=== PATIENT | female | born 1965 | race Caucasian/White ===

== ENCOUNTER 2017-05-13 11:17 | Emergency (ER) | payer BC ==
[~2017-05-13] VITALS: Ht 167.6 cm; Wt 66.2 kg
[~2017-05-13 11:17] MED LIST: AUGMENTIN1 TA2 PO; BIAXIN500 MG PO; CYCLOBENZAPRINE10 M1 OR; IBU600 MG PO; KEFLEX 500MG.500 MG PO; KEFLEX500 M1 PO; NOMEDS *; PAROXETINE HCL20 MG PO; PREDNISONE50 MG PO; PROAIR HFA0.09 MG/AC IH; TESSALON PERLE100 MG PO; VICODIN 5/500 T1 TAB PO; VICODIN 5/6 EACH/PAK OR; ZOFRAN4 MG PO; ZYRTEC10 M1 PO
[2017-05-13] MEDS ORDERED: DAILY MULTIPLE1 TA8 PO (11:28)
[2017-05-13] MEDS ORDERED: WELLBUTRIN 100100 MG PO (11:28)
[2017-05-13 11:31] LABS: URINE BILIRUBIN - DIPSTICK NEGATIVE (NEG)
[2017-05-13 11:32] LABS: URINE BLOOD TRACE (NEG)
--- NOTE | 2017-05-13 11:48 | Urgent Treatment Center Report ---
History of Present Issue Date/Time Seen by Provider 05/13/17 1148 Visit Reason Pt arrived:Walked Presenting Problem:PT STATES RIGHT KIDNEY PAIN AND ODOR TO URINE X4 DAYS Location if Accident: Onset of symptoms date/time:/ or onset unknown for:MEDICAL HX UNKNOWN Have you (or family members/close friends) recently traveled outside the [place]? N If Yes, where/when: Have you had exposure to infectious disease within the past month? TB? Other? Specify: c/o possible UTI. Urine odor and cloudiness x 4 days. While at work this morning , right low back pain started. Described as moderate, constant, ache. No hx of kidney stones but reports this pain is "not like anything I have heard say that feels like". Hasn't taken or tried anything for symptoms. Hx of left nephrectomy for donation. Denies fever, aches, chills, nausea, vomiting. Mild dysuria at end of urination. No frequecy. Denies discharge, abdominal pain. Source patient Exam Limitations no limitations ALLERGIES Coded Allergies: nitrofurantoin (RASH, HIVES, SOA 09/03/15) Home Medications Reported Medications MULTIVITAMIN (Daily Multiple Vitamin) 1 TAB PO DAILY Bupropion Hcl Sr (Wellbutrin 100MG Tab,Sr) 100 MG PO DAILY History Medical History General CAD? No Angina: No MS: No Hypertension? No Hyperlipidemia? No CHF? No DVT? No PE? No COPD? No Asthma? No Anemia? No GERD? No Gastric ulcers? No GI Bleed? No Hernia? No Thyroid Problems? No Hypothyroidism? No CVA? No Seizures? No Diabetes? No Renal Insuffiency? No UTI? Yes Stones? No BPH? No GB Disease: No Nephritic Syndrome? No Asplenia? No Hepatitis? No Sickle Cell Disease? No Arthritis? No Migraines? No Cataracts? No Glaucoma? No MRSA? No HIV? No TB? No Anxiety? No Depression? No Cancer? 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 denies: abnormal vaginal bleeding, hesitancy, hematuria, pelvic pain. Musculoskeletal denies other (aches) Skin denies change in color Physical Exam Vital Signs Vital Signs Date Time Temp Pulse Resp B/P Pulse O2 O2 Flow FiO2 Ox Delivery Rate 05/13 1127 97.9 96 18 116/77 99 General Appearance normal appearance, mild distress (holding right lower lumbar) Respiratory Status No: respiratory distress. Cardiovascular no peripheral edema Gastrointestinal normal bowel sounds, non tender, soft, no suprapubic tenderness , no bladder distention Back normal inspection, no CVA tenderness, no vertebral tenderness, bowel/ bladder continent, gait normal, no tenderness w/ palpation, reporting pain right lumbar region Extremities normal range of motion (BLE) Strength 5 Lower Ext (L), 5 Lower Ext (R) Neurologic alert, no motor/sensory deficits, oriented x 3 Mental status normal mood/affect Skin normal color, warm/dry Medical Decision Making LABS/Meds/Orders Pt receiving controlled substance in ED? No Results/Orders Laboratory Tests 05/13/17 1126: Urine Color YELLOW, Urine Appearance Sl Cloudy, Urine pH 5.5, Ur Specific [place] 1.025, Urine Protein NEGATIVE, Urine Ketones NEGATIVE, Urine Blood TRACE H, Urine Nitrate POSITIVE H, Urine Bilirubin NEGATIVE, Urine Urobilinogen 0.2, Ur Leukocyte Esterase TRACE H, Urine Glucose NEGATIVE Current Medication Orders Sig/Renetta Start time Last Medication Dose Route Stop Time Status Admin Trimethoprim/ 0 .STK-MED ONE 05/13 1204 DC Sulfamethoxazole PO Acetaminophen 0 .STK-MED ONE 05/13 1203 DC PO Trimethoprim/ 0 .STK-MED ONE 05/13 1203 DC Sulfamethoxazole PO Acetaminophen 1,000 MG ONCE ONE 05/13 1200 DC 05/13 PO 05/13 1201 1203 Trimethoprim/ 1 TABLET ONCE ONE 05/13 1200 DCr 05/13 Sulfamethoxazole PO 05/13 1201 1203 Orders Procedure Date/time Status CULTURE, URINE 05/13 120 Active [facility] URINE DIPSTICK 05/13 1126 Complete Departure Departure Time of Disposition 1205 Disposition DC Home or Self Care(routine) Clinical Impression Primary Impression: UTI (urinary tract infection) Qualifiers: Urinary tract infection type: site unspecified Hematuria presence: with hematuria Qualified Code: N39.0 - Urinary tract infection, site not specified Condition STABLE Referrals NO REFERRAL You primary care in [place]. Call today and schedule a follow up for Tuesday to review symptoms, ensure improvement and discuss urine culture. Return to [facility]/ ER immediately this weekend for any new or worsening symptoms as we discussed. Patient Instructions DI for Urinary Tract Infection (UTI), Phenazopyridine Additional Instructions * increase fluids, Water and NOT soda or tea * Start antibiotic this evening after you get off work since we gave you the first dose here in the clinic. Be sure to take as ordered for the FULL length of time although you should start to see improvement over the next 48 hours. * Tylenol as needed for low back pain. Should begin to improve w/ antibiotic treatment. If not, be sure to follow up immediately. * pyridium as needed. Remember this will turn your urine ORANGE, this is normal but will stain whatever it gets on * You should not need the pyridium longer than 48 hours. If so, follow up with primary care to review urine culture and ensure antibiotic is adequate * Be SURE to follow up anytime for new or worsening symptoms, if no improvement in 48 hours AND in 10-14 days to repeat UA and ensure infection resolved and blood no longer present. * Be sure to let your PCP (or whoever you follow up with) know we sent urine culture so they can request records and ensure you are on the appropriate antibiotic if you are not getting better or getting worse!!! Discharge Counseling Counseled pt/family regarding diagnosis, test results, medications/RX, home care, follow up needs Prescriptions Current Visit Scripts SULFAMETHOXAZOLE W/TRIMETHOPRI (Bactrim Ds Tab) 1 TABLET PO BID #13 TAB has first dose in clinic today Phenazopyridine HCl (Pyridium) 200 MG PO TIDP PRN dysuria #6 TAB at 1210
--- OUTSIDE RECORDS SUMMARY | 2017-05-13 12:01 | External Medical Summary Rpt ---
Demographics Preferred Language Yoruba Marital Status Unknown Latter Day Affiliation Unknown Race Unknown Ethnic Group Unknown Author Author BETH Address Unknown Phone Immunization No patient found.
--- OUTSIDE RECORDS SUMMARY | 2017-05-13 12:01 | External Medical Summary Rpt ---
Author Author , DINORA FARIAS Address Unknown Phone [email or web address] Purpose Continuity of Care Document - 12-13-2016 through 2016 Problems Code Diagnosis DOS Provider Status K21.0 GASTRO-ESOP 12-22-2016 HAGEAL REFLUX DISEASE WITH ESOPHAGITIS K29.50 UNSPECIFIED 12-22-2016 CHRONIC GASTRITIS WITHOUT BLEEDING K44.9 DIAPHRAGMAT 12-22-2016 IC HERNIA WITHOUT OBSTRUCTION OR GANGRENE K92.1 MELENA 12-22-2016 R11.2 NAUSEA WITH 12-22-2016 VOMITING, UNSPECIFIED Z72.0 TOBACCO USE 12-22-2016 K52.9 NONINFECTIV 12-13-2016 E GASTROENTER ITIS AND COLITIS, UNSPECIFIED K62.5 HEMORRHAGE 12-13-2016 OF ANUS AND RECTUM R10.30 LOWER 12-13-2016 ABDOMINAL PAIN, UNSPECIFIED 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
--- OUTSIDE RECORDS SUMMARY | 2017-05-13 12:01 | External Medical Summary Rpt ---
Demographics Preferred Language Khmer Marital Status Unknown Jewish Affiliation Unknown Race Unknown Ethnic Group Unknown Author Author BETH Address Unknown Phone Immunization No patient found.
--- OUTSIDE RECORDS SUMMARY | 2017-05-13 12:01 | External Medical Summary Rpt ---
Author Author , DINORA FARIAS Address Unknown Phone [email or web address] Purpose Continuity of Care Document - 12-13-2016 [...]
--- OUTSIDE RECORDS SUMMARY | 2017-05-13 12:01 | External Medical Summary Rpt ---
Author Author [employer] Organization [employer] Address Unknown Phone Unavailable Purpose Continuity of Care Document - through 2016
[2017-05-13] MEDS ORDERED: PYRIDIUM200 M2 PO (12:03)
[2017-05-13] MEDS ORDERED: BACTRIM DS 8001 TA1 PO (12:03)
[2017-05-13 12:09] VITALS: BP 116/77
== END 2017-05-13 12:09 | disposition home or self-care (01) ==
LOC: UTC 11:17
PROVIDERS: Nurse Practitioner Family
DX: N39.0 Urinary tract infection, site not specified (principal); Z72.0 Tobacco use

== ENCOUNTER 2017-07-22 11:38 | Emergency (ER) | payer BC ==
[~2017-07-22] VITALS: Ht 167.6 cm; Wt 66.7 kg
[~2017-07-22 11:38] MED LIST changes: +BACTRIM DS 8001 TA1 PO; +DAILY MULTIPLE1 TA8 PO; +PYRIDIUM200 M2 PO; +WELLBUTRIN 100100 MG PO
[2017-07-22] MEDS ORDERED: CALCIUM ACETAT667 MG PO (11:52)
[2017-07-22] MEDS ORDERED: PROAIR HFA0.09 MG/AC IH (11:53)
[2017-07-22] MEDS ORDERED: ANORO ELLIPTA1 POW IH (11:54)
[2017-07-22 12:04] LABS: HEMOGLOBIN 13.9 g/dL (12.2-16.2); LYMPH # 2.8 K/mm3 (0.7-4.5)
[2017-07-22 12:05] LABS: URINE BILIRUBIN - DIPSTICK NEGATIVE (NEG); URINE BLOOD NEGATIVE (NEG)
[2017-07-22 12:25] LABS: BUN 21 mg/dL (7-18); GFR (ESTIMATED) 37 ML/MIN (59-)
--- NOTE | 2017-07-22 12:39 | RADIOLOGY REPORT PS360 ---
CT HEAD W/O CONTRAST HISTORY: Dizziness, bilateral arm heaviness ARM HEAVINESS BILATERAL DIZZINESS ORDERING PHYSICIAN: Mela Baels MD PATIENT AGE: 51 years COMPARISON: 01/30/2015 TECHNIQUE: Axial images obtained without contrast. Brain and bone windows reviewed. FINDINGS: No midline shift, mass effect, intracranial hemorrhage, hydrocephalus, or extra-axial fluid collection is evident. The calvarium has an unremarkable appearance. No mastoid effusion. The visualized paranasal sinuses are unremarkable. IMPRESSION: 1. Negative CT head without contrast. No acute finding. 2. There is no evidence of intracranial hemorrhage, focal mass, or acute territorial infarction. A negative CT does not exclude an acute CVA. A follow-up head CT or MRI is recommended if neurological symptoms persist
--- NOTE | 2017-07-22 12:40 | RADIOLOGY REPORT PS360 ---
CHEST(2 VIEWS-NOT PORTABLE) HISTORY: DIZINESS, ARM HEAVINESS ORDERING PHYSICIAN: Mela Bales MD PATIENT AGE: 51 years COMPARISON: 09-16 FINDINGS: The cardiomediastinal silhouette and pulmonary vascularity are within normal limits. The lungs are clear without infiltrates, suspicious nodules, or pleural effusions. No change in the nodularity present in the left upper lobe overlying the third rib. No acute bony abnormalities. IMPRESSION: No change with no acute finding
--- NOTE | 2017-07-22 12:42 | Emergency Room Report ---
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 N Clinical Suspician of Infection? N Mental Status: 1 - Regular (Normal Baseline) Sepsis Risk:Low Sepsis Risk Have you (or family members/close friends) recently traveled outside the [place]? N If Yes, where/when: Have you had exposure to infectious disease within the past month? N TB? Other? Specify: Patient ate breakfast today, went to work, then felt lightheaded at work. Lips and gums were tingling, as were her hands. She feels better now. She has had some congestion, but no vertigo when turning head. Recently diagnosed with COPD in the last few weeks, started on inhalers, and quit smoking. She denies SOB today, denies flu sx, denies chest pain or palpitations, denies calf pain, denies syncope or near syncope; no cephalgia. Recent increase in Wellbutryn dosing. ALLERGIES Coded Allergies: No Known Allergies (07/22/17) Home Medications Reported Medications Bupropion Hcl Sr (Wellbutrin 100MG Tab,Sr) 300 MG PO DAILY Calcium Acetate 667 MG PO DAILY Albuterol Sulfate (Proair Hfa) 2 PUFF IH Q4HP PRN SOA UMECLIDINIUM BRM/VILANTEROL TR (Anoro Ellipta 62.5-25 Mcg INH) 1 POW IH DAILY History Medical History General CAD? No Angina: No MD: No Hypertension? No Hyperlipidemia? No CHF? No DVT? No PE? No COPD? Yes Asthma? No Anemia? No GERD? No Gastric ulcers? No GI Bleed? No Hernia? No Thyroid Problems? No Hypothyroidism? No CVA? No Seizures? No Diabetes? No Renal Insuffiency? No End Stage Renal Disease? No UTI? Yes Stones? No BPH? No GB Disease: No Nephritic Syndrome? No Asplenia? No Hepatitis? No Sickle Cell Disease? No Arthritis? No Migraines? No Cataracts? No Glaucoma? No MRSA? No HIV? No TB? No Anxiety? No Depression? No Cancer? 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 Respiratory see HPI Genitourinary denies: no symptoms reported (has hx UTI). Psychiatric/Neurological see HPI Physical Exam Vital Signs Vital Signs Date Time Temp Pulse Resp B/P Pulse O2 O2 Flow FiO2 Ox Delivery Rate 07/22 1236 94 127/97 07/22 1236 84 106/68 07/22 1220 76 124/82 07/22 1140 98.2 73 20 124/82 100 General Appearance normal appearance, WD/WN, no apparent distress Eye Exam - bilateral eye normal exam, bilateral eye PERRL, bilateral eye EOMI Ear, Nose, Throat hearing grossly normal, normal ENT inspection, normal pharynx (mild cloudiness, left TM), abnormal TM (L) Neck normal inspection, non-tender, supple, full range of motion Respiratory Status Yes: trachea midline, chest symmetrical, non tender chest. No: respiratory distress, tender on palpation, use of accessory muscles, pain on inspiration, pain on expiration, productive cough, non productive cough. Lung Sounds bilateral: normal breath sounds, lungs clear. 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 Glascow Coma Scale Glascow Coma Scale Response Value EYE response: 4 Spontaneously 4 MOTOR response: 6 OBEYS 6 VERBAL response: 5 Oriented & Converses 5 Total 15 Skin intact, normal color Medical Decision Making LABS/Meds/Orders Pt receiving controlled substance in ED? No Results/Orders Laboratory Tests 07/22/17 1155: Urine Color YELLOW, Urine Appearance CLEAR, Urine pH 6.5, Ur Specific [place] <= 1.005, Urine Protein NEGATIVE, Urine Ketones NEGATIVE, Urine Blood NEGATIVE, Urine Nitrate NEGATIVE, Urine Bilirubin NEGATIVE, Urine Urobilinogen 0.2, Ur Leukocyte Esterase NEGATIVE, Urine WBC OCC, Ur Squamous Epith Cells 5-10, Urine Bacteria 2+, Urine Glucose NEGATIVE 07/22/17 1145: Sodium 137, Potassium 3.8, Chloride 102, Carbon Dioxide 27, BUN 21 H, Creatinine 1.5 H, Estimated Creat Clear 47 L, Estimated GFR (MDRD) 37 L, Glucose 86, Calcium 9.3, Total Bilirubin 0.2, AST 16, ALT 22, Alkaline Phosphatase 76, Creatine Kinase 90, CK-MB (CK-2) Rel Index 0.6, CK and CKMB Interp < 0.5, Troponin I < 0.02, Total Protein 6.9, Albumin 3.5, Globulin 3.4 H , Albumin/Globulin Ratio 1.0 L, WBC 6.7, RBC 4.47, Hgb 13.9, Hct 40.7, MCV 91.0 , RDW 13.1, Plt Count 245, MPV 6.9 L, Gran % 47.7, Gran # 3.2, Lymphocytes % 42.0, Monocytes % 5.4, Eosinophils % 3.8, Basophils % 1.2, Lymphocytes # 2.8, Monocytes # 0.4, Eosinophils # 0.3, Basophils # 0.1, PUBS MCHC 34.2, MCH 31.2 Current Medication Orders Sig/Renetta Start time Last Medication Dose Route Stop Time Status Admin Sodium Chloride 10 ML PRN PRN 07/22 1215 AC IV 07/23 1202 Orders Procedure Date/time Status DIET-NOTHING BY MOUTH 07/22 D Active IV SALINE LOCK 07/22 1202 Active ORTHOSTATIC B/P 07/22 1202 Active URINALYSIS/COMPLETE 07/22 1200 Complete ELECTROCARDIOGRAM REQUEST 07/[address] HEAD REQ 07/22 115 Active CBC WITH AUTO DIFF 07/22 1159 Complete CARDIAC ENZYMES 07/22 1159 Complete CHEM 12 PROFILE 07/22 1159 Complete CULTURE, URINE 07/22 1155 Active 12 LEAD EKG-ASHLEY (INITIAL) 07/22 UNK Active CM/EKG CM/EKG EKG rate, NSR, rhythm, no evid. of ischemic chgs, no ectopy, normal QRS, normal [place], normal EKG (NSR 77) XRAY/CT/US XRAY/CT/US XRAY chest XR interpretation by reviewed by me (report reviewed) Xray Results normal/NAD, no infiltrates, no hematoma seen, normal lung inflation amy CT head CT interpretation by reviewed by me (report reviewed) Time results known: 1243 CT Results normal/NAD Departure Departure Time of Disposition 124 Disposition DC Home or Self Care(routine) Clinical Impression Primary Impression: Lightheaded Condition STABLE Patient Instructions Dizziness, Nonvertigo Additional Instructions Encourage fluids, see Dr. Meyer for follow up in one to three days, continue current medications. Discharge Counseling Counseled pt/family regarding diagnosis, test results, medications/RX, home care ED Critical Care Critical Care No at 1249
--- NOTE | 2017-07-22 12:42 | Emergency Room Report ---
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 N Clinical Suspician of Infection? N Mental Status: 1 - Regular (Normal Baseline) Sepsis Risk:Low Sepsis Risk Have you (or family members/close friends) recently traveled outside the [place]? N If Yes, where/when: Have you had exposure to infectious disease within the past month? N TB? Other? Specify: Patient ate breakfast today, went to work, then felt lightheaded at work. Lips and gums were tingling, as were her hands. She feels better now. She has had some congestion, but no vertigo when turning head. Recently diagnosed with COPD in the last few weeks, started on inhalers, and quit smoking. She denies SOB today, denies flu sx, denies chest pain or palpitations, denies calf pain, denies syncope or near syncope; no cephalgia. Recent increase in Wellbutryn dosing. ALLERGIES Coded Allergies: No Known Allergies (07/22/17) Home Medications Reported Medications Bupropion Hcl Sr (Wellbutrin 100MG Tab,Sr) 300 MG PO DAILY Calcium Acetate 667 MG PO DAILY Albuterol Sulfate (Proair Hfa) 2 PUFF IH Q4HP PRN SOA UMECLIDINIUM BRM/VILANTEROL TR (Anoro Ellipta 62.5-25 Mcg INH) 1 POW IH DAILY History Medical History General CAD? No Angina: No CA: No Hypertension? No Hyperlipidemia? No CHF? No DVT? No PE? No COPD? Yes Asthma? No Anemia? No GERD? No Gastric ulcers? No GI Bleed? No Hernia? No Thyroid Problems? No Hypothyroidism? No CVA? No Seizures? No Diabetes? No Renal Insuffiency? No End Stage Renal Disease? No UTI? Yes Stones? No BPH? No GB Disease: No Nephritic Syndrome? No Asplenia? No Hepatitis? No Sickle Cell Disease? No Arthritis? No Migraines? No Cataracts? No Glaucoma? No MRSA? No HIV? No TB? No Anxiety? No Depression? No Cancer? 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 Respiratory see HPI Genitourinary denies: no symptoms reported (has hx UTI). Psychiatric/Neurological see HPI Physical Exam Vital Signs Vital Signs Date Time Temp Pulse Resp B/P Pulse O2 O2 Flow FiO2 Ox Delivery Rate 07/22 1236 94 127/97 07/22 1236 84 106/68 07/22 1220 76 124/82 07/22 1140 98.2 73 20 124/82 100 General Appearance normal appearance, WD/WN, no apparent distress Eye Exam - bilateral eye normal exam, bilateral eye PERRL, bilateral eye EOMI Ear, Nose, Throat hearing grossly normal, normal ENT inspection, normal pharynx (mild cloudiness, left TM), abnormal TM (L) Neck normal inspection, non-tender, supple, full range of motion Respiratory Status Yes: trachea midline, chest symmetrical, non tender chest. No: respiratory distress, tender on palpation, use of accessory muscles, pain on inspiration, pain on expiration, productive cough, non productive cough. Lung Sounds bilateral: normal breath sounds, lungs clear. 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 Glascow Coma Scale Glascow Coma Scale Response Value EYE response: 4 Spontaneously 4 MOTOR response: 6 OBEYS 6 VERBAL response: 5 Oriented & Converses 5 Total 15 Skin intact, normal color Medical Decision Making LABS/Meds/Orders Pt receiving controlled substance in ED? No Results/Orders Laboratory Tests 07/22/17 1155: Urine Color YELLOW, Urine Appearance CLEAR, Urine pH 6.5, Ur Specific [place] <= 1.005, Urine Protein NEGATIVE, Urine Ketones NEGATIVE, Urine Blood NEGATIVE, Urine Nitrate NEGATIVE, Urine Bilirubin NEGATIVE, Urine Urobilinogen 0.2, Ur Leukocyte Esterase NEGATIVE, Urine WBC OCC, Ur Squamous Epith Cells 5-10, Urine Bacteria 2+, Urine Glucose NEGATIVE 07/22/17 1145: Sodium 137, Potassium 3.8, Chloride 102, Carbon Dioxide 27, BUN 21 H, Creatinine 1.5 H, Estimated Creat Clear 47 L, Estimated GFR (MDRD) 37 L, Glucose 86, Calcium 9.3, Total Bilirubin 0.2, AST 16, ALT 22, Alkaline Phosphatase 76, Creatine Kinase 90, CK-MB (CK-2) Rel Index 0.6, CK and CKMB Interp < 0.5, Troponin I < 0.02, Total Protein 6.9, Albumin 3.5, Globulin 3.4 H , Albumin/Globulin Ratio 1.0 L, WBC 6.7, RBC 4.47, Hgb 13.9, Hct 40.7, MCV 91.0 , RDW 13.1, Plt Count 245, MPV 6.9 L, Gran % 47.7, Gran # 3.2, Lymphocytes % 42.0, Monocytes % 5.4, Eosinophils % 3.8, Basophils % 1.2, Lymphocytes # 2.8, Monocytes # 0.4, Eosinophils # 0.3, Basophils # 0.1, PUBS MCHC 34.2, MCH 31.2 Current Medication Orders Sig/Renetta Start time Last Medication Dose Route Stop Time Status Admin Sodium Chloride 10 ML PRN PRN 07/22 1215 AC IV 07/23 1202 Orders Procedure Date/time Status DIET-NOTHING BY MOUTH 07/22 D Active IV SALINE LOCK 07/22 1202 Active ORTHOSTATIC B/P 07/22 1202 Active URINALYSIS/COMPLETE 07/22 1200 Complete ELECTROCARDIOGRAM REQUEST 07/[address] HEAD REQ 07/22 115 Active CBC WITH AUTO DIFF 07/22 1159 Complete CARDIAC ENZYMES 07/22 1159 Complete CHEM 12 PROFILE 07/22 1159 Complete CULTURE, URINE 07/22 1155 Active 12 LEAD EKG-ASHLEY (INITIAL) 07/22 UNK Active CM/EKG CM/EKG EKG rate, NSR, rhythm, no evid. of ischemic chgs, no ectopy, normal QRS, normal [place], normal EKG (NSR 77) XRAY/CT/US XRAY/CT/US XRAY chest XR interpretation by reviewed by me (report reviewed) Xray Results normal/NAD, no infiltrates, no hematoma seen, normal lung inflation amy CT head CT interpretation by reviewed by me (report reviewed) Time results known: 1243 CT Results normal/NAD Departure Departure Time of Disposition 124 Disposition DC Home or Self Care(routine) Clinical Impression Primary Impression: Lightheaded Condition STABLE Patient Instructions Dizziness, Nonvertigo Additional Instructions Encourage fluids, see Dr. Meyer for follow up in one to three days, continue current medications. Discharge Counseling Counseled pt/family regarding diagnosis, test results, medications/RX, home care ED Critical Care Critical Care No at 1241
[2017-07-22 12:55] VITALS: BP 114/77
--- OUTSIDE RECORDS SUMMARY | 2017-07-22 13:11 | External Medical Summary Rpt | CCD ---
Demographics Preferred Language Yi Marital Status Unknown Religion Affiliation Unknown Race Unknown Ethnic Group Unknown Author Author , DINORA FARIAS Address Unknown Phone Immunization No patient found.
--- OUTSIDE RECORDS SUMMARY | 2017-07-22 13:11 | External Medical Summary Rpt | CCD ---
Demographics Preferred Language Albanian Marital Status Unknown Holiness Affiliation Unknown Race Unknown Ethnic Group Unknown Author Author , DINORA FARIAS Address Unknown Phone Immunization No patient found.
--- OUTSIDE RECORDS SUMMARY | 2017-07-22 13:11 | External Medical Summary Rpt | CCD ---
Author Author , [facility] Organization [facility] Address Unknown Phone [email or web address] Purpose Continuity of Care Document - 12-13-2016 through 2016 Problems Code Diagnosis DOS Provider Status J44.1 CHRONIC 07-14-2017 OBSTRUCTIVE PULMONARY DISEASE WITH (ACUTE) EXACERBATIO N K21.0 GASTRO-ESOP 12-22-2016 HAGEAL REFLUX DISEASE WITH [...]
--- OUTSIDE RECORDS SUMMARY | 2017-07-22 13:11 | External Medical Summary Rpt | CCD ---
Author Author , [facility] Organization [facility] Address Unknown Phone [email or web address] Purpose Continuity of Care Document - 12-13-2016 [...]
== END 2017-07-22 12:55 | disposition home or self-care (01) ==
LOC: ER 11:38
PROVIDERS: Emergency Medicine
DX: R42 Dizziness and giddiness (principal); J44.9 Chronic obstructive pulmonary disease, unspecified; Z87.891 Personal history of nicotine dependence; Z79.899 Other long term (current) drug therapy; Z90.5 Acquired absence of kidney